=== PATIENT | female | born 1945 | race Caucasian/White ===

== ENCOUNTER 2021-11-08 06:34 | Outpatient (CLI) | payer MEDICARE, SELFPAY ==
--- NOTE | 2021-11-08 18:41 | STRESSREP ---
Stress Test Report Pharmacologic myocardial perfusion stress test. 76-year-old lady with a history of an abnormal echo. Resting EKG demonstrates normal sinus rhythm with a rate of 67 bpm normal intervals are noted resting blood pressure is 126/80 mmHg. 0.4 mg of regadenoson was infused per usual protocol followed by rapid intravenous saline flush injection continuous EKG monitoring was performed. The maximum heart rate attained was 105 bpm which was 73% of max impacted heart rate the maximum workload was 1 metabolic equivalent. At rest there were no ST or T wave changes noted to suggest abnormal flow reserve and at peak infusion nonspecific ST changes were noted with did not meet the criteria for ischemia. The final blood pressure was 144/84 mmHg. Myocardial perfusion protocol. 11.8 mCi of technetium 99m sestamibi was injected at rest. 0.4 mg of regadenoson was infused per usual protocol. At peak infusion 34.6 mCi of technetium 99m sestamibi was injected stress images were obtained stress and rest images were reconstructed and compared in the short axis vertical long and horizontal long axis. Gated images were also obtained Perfusion SPECT analysis: Review of the stress images demonstrate normal uptake of tracer noted in all areas of the myocardium. The resting images similar demonstrate normal uptake of tracer noted in all areas of the myocardium. There were no perfusion areas to suggest ischemia and no previous infarct was noted. Gated SPECT analysis: The gated ejection fraction is 46%. Conclusion: Normal pharmacologic myocardial perfusion stress test. Preserved ejection fraction.
== END 2021-11-08 23:59 | disposition home or self-care (01) ==
PROVIDERS: Referring Provider Internal Medicine Cardiovascular Disease; Visit Provider Internal Medicine Cardiovascular Disease
DX: R93.1 Abnormal findings on diagnostic imaging of heart and coronary circulation (principal); R06.09 Other forms of dyspnea
CPT/HCPCS: 78452; 93017; A9500; A4216; J2785

== ENCOUNTER → 2022-01-24 | Outpatient (CLI) | payer MEDICARE, SELFPAY | END | disposition home or self-care (01) | LOC: PSN 08:32 | PROVIDERS: Referring Provider Internal Medicine Cardiovascular Disease; Visit Provider Internal Medicine Cardiovascular Disease | DX: R00.2 Palpitations (principal); R93.1 Abnormal findings on diagnostic imaging of heart and coronary circulation; I10 Essential (primary) hypertension | CPT/HCPCS: 93225; 93226 ==

== ENCOUNTER 2023-06-26 06:05 | Emergency (ER) | payer MEDICARE, SELFPAY ==
[2023-06-26 06:05] VITALS: BP 144/67; PULSE 83; RESP 19; TEMP 36.5; O2SAT 98; BMI 25.0
--- NOTE | 2023-06-26 06:10 | RAD_ITS ---
INDICATION: fall, pain EXAMINATION/TECHNIQUE: X-RAY - XR Hips Bilateral with Pelvis COMPARISON: None. FINDINGS: A frontal view of the pelvis was obtained as well as frontal and lateral views of the bilateral hips. There is a fracture of the superior pubic ramus on the right. No acute hip fracture is identified bilaterally. No dislocation. Severe degenerative changes of the right hip are characterized by marked subchondral sclerosis and joint space narrowing. Deformity of the right humeral head characterized by flattening and some degree of foreshortening. Extensive osteophytic spurring about the right hip. RAD/Hips B/L min 2 views w/ Pelvis IMPRESSION: Fracture of the right superior pubic ramus. Severe degenerative changes of the right hip. Electronically Signed: Thai Be MD at 7:33 EST ,
--- NOTE | 2023-06-26 06:11 | ED.VIS.FALL ---
HPI HPI - Fall History of Present Illness Chief Complaint: Fall Informant: patient and EMS Narrative Narrative: [facility] patient brought by EMS about 3 hours after she had an unwitnessed fall after rolling out of bed. EMS states that literally she is lying on a mattress that is sitting on the floor so she rolled out of bed falling less than 6 inches to the floor. She seems to have indicated to EMS that her left hip and thigh are hurting. For us, she states she cannot tell where but she has pain. They state that after discussing with staff at the snf she is at her baseline mental status/confusion. [facility] Medical History Allergic rhinitis Arthritis Essential hypertension Hyperglycemia Hyperlipidemia Osteoporosis Home Medications calcium carbonate 250 mg-vitamin D3 3.125 mcg (125 unit) tablet 1 tab PO TID 10/13/21 [History Last Taken Unknown] denosumab 60 mg/mL subcutaneous syringe (Prolia) 60 mg subcut [id number] 10/13/21 [History Last Taken 06/21/23] lovastatin 20 mg tablet 20 mg PO DAILY 10/13/21 [History Last Taken Unknown] multivitamin 1 tab PO DAILY 10/13/21 [History Last Taken Unknown] doxepin 3 mg tablet 3 mg PO QHS sleep 06/26/23 [History Last Taken Unknown] furosemide 20 mg tablet 20 mg PO DAILY 06/26/23 [History Last Taken Unknown] hydrocodone-acetaminophen 5-325mg 5mg-325mg 1 tab PO Q4H PRN PRN Pain 3 days #18 TABLETS 06/26/23 [Rx Last Taken Unknown] potassium chloride 20 mEq tablet,extended release(part/cryst) 20 meq PO DAILY 06/26/23 [History Last Taken Unknown] Allergy/AdvReac Type Severity Reaction Status Date / Time guaifenesin [From Entex LA] Allergy Unknown unknown Verified 06/26/23 06:06 phenylephrine [From Entex LA] Allergy Unknown unknown Verified 06/26/23 06:06 phenylpropanolamine Allergy Unknown unknown Verified 06/26/23 06:06 [From Entex LA] Sulfa (Sulfonamide Allergy Unknown unknown Verified 06/26/23 06:06 Antibiotics) Family History Father Alzheimer's disease Diabetes Hypertension Mother CVA (cerebral vascular accident) Hypertension Surgical History H/O hemorrhoidectomy History of cholecystectomy History of hysterectomy Social History Smoking Status: Never smoker alcohol intake: never substance use type: does not use caffeine: Yes Type: coffee Number of servings: 3 ROS ROS ED Constitutional Constitutional ED: Denies chills or fever(s) Eyes Eyes: Denies change in vision or diplopia ENT ENT ED: Denies rhinorrhea or sore throat Cardiovascular Cardiovascular: Denies chest pain or palpitations Respiratory/Chest Respiratory/Chest: Denies cough or dyspnea Gastrointestinal Gastrointestinal: Denies abdominal pain, diarrhea, nausea or vomiting Genitourinary Genitourinary ED: Denies dysuria or hematuria Musculoskeletal Musculoskeletal: Reports extremity pain; Denies back pain or neck pain Integumentary Denies abscess or rash Neurologic Neurologic: Reports as per HPI and confusion; Denies headache(s), paresthesias or weakness Psychiatric Psychiatric: Reports anxiety; Denies suicidal thoughts EXAM Physical Exam Const Vital Signs: 06/26/23 06:05 06/26/23 06:05 06/26/23 07:49 Temperature 97.7 F L Temperature Source Temporal Pulse Rate 83 66 Respiratory Rate 19 H 18 Respiratory Effort Normal Non-Labored Respiratory Depth Normal Respiratory Pattern Normal Blood Pressure 144/67 H 150/60 H Blood Pressure Mean 92 90 Pulse Ox 98 98 96 Oxygen Delivery Method Room Air Room Air Room Air Positive well nourished and well developed General Appearance ED: well developed and NAD HEENT Reports TM's clear and moist mucous membranes normocephalic and atraumatic; Negative for contusion, hematoma or tenderness Tympanic Membrane ED: Yes TM's clear Eyes PERRL and EOMs intact bilaterally Neck full ROM and supple Chest Wall inspection of chest normal and palpation of chest normal Resp normal respiratory effort and clear to auscultation bilaterally Cardio regular rate, regular rhythm and no murmurs Rate: Negative for tachycardic GI non-tender and non-distended GI Narrative: Pelvis stable to AP compression Auscultation: normoactive bowel sounds Palpation: soft Back/Spine no CVA tenderness General Back: other FROM Extremity normal to inspection Extremity Narrative: Tenderness at both hips at the greater trochanter. She is lying comfortably on the right lateral decubitus, but ranging the left knee and hip do not reproduce pain. However when ranging the right hip, she has pain there. There is no obvious signs of trauma, no ecchymosis or purpura to the areas. She has diffuse tenderness throughout the posterior aspect of the sacrum and pelvis including the ischial tuberosities bilaterally. No midline spinal tenderness or step-off or signs of trauma. General Extremety ED: Yes tenderness; Negative for edema or pulses abnormal General Extremity: Negative for edema or pulses abnormal Neuro CN's II-XII intact bilaterally and no sensory deficits noted Sensorium / Orientation: awake, alert, oriented to person and oriented to place; Negative for oriented to time Motor Exam: strength 5/5 throughout Psych Mood & Affect: anxious Skin no rashes or lesions noted and no wounds MDM MDM MDM Narrative Medical decision making narrative: 5 view x-ray series of pelvis and both hips were obtained and on my interpretation shows an acute right superior ramus fracture and no other fractures. She does appear to have severe arthritis that may also include osteonecrosis and collapse of the right femoral head. This looks chronic. This would explain why she is having pain with ranging the right hip. According to patient and daughter, she does some limited ambulation with significant assistance and they are aware of her bilateral hip arthritis. We did attempt to have her bear weight, and she was not able to put any weight on her legs, citing both hips in her left thigh. She was not tender in her thigh or her knee, but I sent her back for x-rays of the femur all the way down to the knee to rule out further fractures of these areas. 4 views of my interpretation showed no acute fractures throughout the femur or the knee. Given this, I think she can go back to the [facility]. She is already under the care of physical therapy there, this is a weightbearing as tolerated injury, and they can continue to evaluate and work with her. Will send her back with prescription for analgesics if needed. Radiography Diagnostic Testing: Clinical Impression(s) from Imaging Studies Hip/Pelvis X-Ray 06/26/23 06:10 IMPRESSION: Fracture of the right superior pubic ramus. Severe degenerative changes of the right hip. Electronically Signed: Thai Be MD at 7:33 EST , Discharge Plan Triage Chief Complaint: Fall ED Provider: Parth Hernández Dx/Rx/DC Orders Clinical Impression: Accidental fall from bed, Closed fracture of right superior pubic ramus Instructions: ED Pelvic Fracture Prescriptions: New hydrocodone-acetaminophen [hydrocodone-acetaminophen] 5-325 mg tablet 1 tab PO Q4H PRN PRN (Reason: Pain) 3 Days Qty: 18 0RF No Action Prolia 60 mg/mL syringe 60 mg subcut [id number] calcium carbonate-vitamin D3 250 mg-3.125 mcg (125 unit) tablet 1 tab PO TID lovastatin 20 mg tablet 20 mg PO DAILY multivitamin Tablet 1 tab PO DAILY doxepin 3 mg tablet 3 mg PO QHS furosemide 20 mg tablet 20 mg PO DAILY Patient Comments: TAKE ONE TABLET BY MOUTH EVERY DAY potassium chloride 20 mEq tablet,ER particles/crystals 20 meq PO DAILY Patient Comments: TAKE ONE TABLET BY MOUTH EVERY DAY WITH FOOD Primary Care Provider: Delmer Hoffman Referrals: Cielo Zaidi DO [Non-Staff] - Delmer Hoffman MD [Primary Care Provider] - As soon as possible Activity Restrictions/Additional Instructions: There is a minor fracture of the right superior pubic ramus, which is typically nonsurgical, weightbearing as tolerated fracture. This is on the side where her hip arthritis is much worse, which is good. Physical therapy can evaluate her and work with her on this. Treatment is pain control and time for the most part as the bones will take some time to heal. No other areas of fracture seen. Disposition Disposition: Home, Self Care
[2023-06-26] MEDS: HYDROcodone Bitartrate/Apap 5/325 Tablet PO (06:17)
--- OUTSIDE RECORDS SUMMARY | 2023-06-26 06:36 | XMS RPT_ITS | CCD ---
Author Name Unknown Address [address] [place] [address] Organization [facility] Care Team Providers Care Senior Speech Pathologist Name Role Phone DIYA STEELE, DR MCELROY Primary Care Physician [phone] DIYA STEELE, DR MCELROY Attending Unavailable DIYA STEELE, DR MCELROY Primary Care Unavailable KIMBALLTOMMY GONZALEZ, FABY Solorzano Attending Samantha KEANE DO, DR MCELROY Primary Care Unavailable DIYA STEELE, DR MCELROY Primary Care Unavailable MAU GALLOWAY FACP, RYAN Gale Consulting Unavail able ELE ALMANZAR-NATALIA, VIJAYA Chun Admitting Unavaila zacarias GONZALEZ, VIJAYA M Referring Unavaila zacarias SAUNDERS MD FACP, RYAN Gale Attending Unavail able DIYA STEELE, DR MCELROY Attending Unavailable DIYA STEELE, DR MCELROY Primary Care Unavailable Allergies Allergy Classification Reported Allergen(s) Allergy Type Date of Onset Reaction(s) Facility (4 sources) guaiFENesin / Phenylephrine / Phenylpropanolamin e; Translations: [guaifenesin/pheny lephrine/PPA] Drug Allergy [facility] (4 sources) Sulfonamides (Antibiotic); Translations: [sulfa drugs] Drug allergy [facility] (3 sources) misc non-codified allergy 1 Drug allergy Antex [facility] Medications Current Medications Medication Drug Class(es) Dates Sig (Normalized) Sig (Original) amLODIPine 5 mg oral tablet (3 sources) Dihydropyridine Calcium Channel Redd Start: 03-02-2022 amLODIPine 5 mg oral tablet Dose : 5 mg = 1 tab(s), Oral, qDay, # 90 tab(s), 1 Refill(s), Pharmacy: [facility], 155, cm, 12/29/21 9:40:00 EDT, Height, kg, 12/29/21 9:40:00 EDT, Dosing Weight Start Date: 03/02/22 Status: Ordered Completed/Discontinued Medications Medication Drug Class(es) Dates Sig (Normalized) Sig (Original) 1 ml denosumab 60 mg/ml prefilled syringe (3 sources) RANK Ligand Inhibitor Start: 03-22-2023 Prolia 60 mg/mL subcutaneous solution Dose : 60 mg = 1 mL, Subcutaneous, q6mo, # 1 mL, 0 Refill(s), Pharmacy: [facility], 148, cm, 02/22/23 9:51:00 EDT, Height, kg, 02/22/23 9:51:00 EDT, Dosing Weight Start Date: 03/22/23 Status: Ordered Problems Problem Classification Problem Date Documented Date Episodic/Chronic Conduction disorders (2 sources) Second degree atrioventricular block; Translations: [Atrioventricular block, second degree] Onset: 06-21-2023 Chronic Diabetes mellitus without complication (4 sources) Hyperglycemia 02-23-2020 Episodic Disorders of lipid metabolism (4 sources) Hyperlipidemia 05-27-2019 Chronic Results Test Name Value Interpretation Reference Range Facil ity Vital Signs Date Time Vital Sign Value Performing Clinician Vlad harding 06-21-2023 12:18-0500 Body temperature 98.06 [degF] VIJAYA MARLOW [employer] [facility] 06-21-2023 12:18-0500 Diastolic Blood Pressure Non-Invasive 78 mm[Hg] VIJAYA MARLOW APRN-[employer] DRIVER [facility] 06-21-2023 12:18-0500 Heart rate 69 /min VIJAYA GONZALEZ [facility] 06-21-2023 12:18-0500 Reason For Taking VItal Signs VIJAYA AGARWALSALES ROUTE DRIVER [facility] 06-21-2023 12:18-0500 Respiratory rate 18 /min VIJAYA KAPPER FLOWER [employer]ENILLER-[employer] DRIVER [facility] 06-21-2023 12:18-0500 Systolic Blood Pressure Non-Invasive 145 mm[Hg] VIJAYA GUERRAER FLOWER [employer] [facility] 06-21-2023 06:53-0500 Body temperature 98.06 [degF] VIJAYA GUERRAER FLOWER [employer] [facility] 06-21-2023 06:53-0500 Diastolic Blood Pressure Non-Invasive 93 mm[Hg] VIJAYA GUERRAER FLOWER [employer] DR[employer] [facility] 06-21-2023 06:53-0500 Heart rate 75 /min VIJAYA MARLOW FLOWER [employer] [facility] 06-21-2023 06:53-0500 Reason For Taking VItal Signs VIJAYA MARLOW FLOWER [employer] DR[employer] [facility] 06-21-2023 06:53-0500 Respiratory rate 18 /min VIJAYA GUERRAER FLOWER [employer] [facility] 06-21-2023 06:53-0500 Systolic Blood Pressure Non-Invasive 113 mm[Hg] VIJAYA GUERRAER FLOWER [employer] [facility] 06-21-2023 04:00-0500 Body temperature 97.88 [degF] VIJAYA GUERRAER FLOWER [employer] [facility] 06-21-2023 04:00-0500 Diastolic Blood Pressure Non-Invasive 66 mm[Hg] VIJAYA MARIER FLOWER [employer] [facility] 06-21-2023 04:00-0500 Heart rate 74 /min VIJAYA GUERRAER FLOWER [employer] [facility] 06-21-2023 04:00-0500 Systolic Blood Pressure Non-Invasive 151 mm[Hg] VIJAYA KAPPER FLOWER [employer] [facility] 06-21-2023 03:20-0500 Body weight 56.7 kg VIJAYA KAPPER FLOWER [employer] [facility] 06-20-2023 23:45-0500 Mean blood pressure 77 mm[Hg] VIJAYA KAPPER FLOWER [employer] [facility] 06-20-2023 03:30-0500 Heart rate 78 /min VIJAYA KAPPER FLOWER [employer] [facility] 06-20-2023 00:00-0500 Heart rate 80 /min VIJAYA KAPPER FLOWER [employer] [facility] 06-19-2023 20:20-0500 Heart rate 98 /min VIJAYA KAPPER FLOWER [employer] [facility] 06-19-2023 15:55-0500 Body height 152.4 cm VIJAYA KAPPER FLOWER [employer] [facility] 06-19-2023 15:55-0500 Body weight 56.6 kg VIJAYA KAPPER FLOWER [employer] [facility] 06-19-2023 15:55-0500 Body weight 24.37 kg/m2 VIJAYA KAPPER FLOWER [employer] [facility] 06-19-2023 15:39-0500 Heart rate 93 /min VIJAYA KAPPER FLOWER [employer] [facility] 06-19-2023 10:39-0500 Heart rate 75 /min VIJAYA KAPPER FLOWER [employer] DR[employer] [facility] Encounters Encounter Date Encounter Type Care Provider Facility Start: 06-19-2023 End: 06-21-[address] LILIBETH KEANE DO Facility:[facility] Start: 06-19-2023 End: 06-21-2023 Observation VIJAYA MARLOW FLOWER [employer] [facility] Start: 01-01-2023 End: 01-02-[address] LILIBETH KEANE DO Facility:B Start: 06-26-2022 End: 06-27-[address] LILIBETH KEANE DO Facility:[facility] Start: 06-26-2022 End: 06-26-[address] LILIBEHT KEANE DO [facility] Start: 01-02-2022 End: 01-02-[address] LILIBETH KEANE DO [facility] Start: 06-14-2021 End: 06-14-[address] LILIBETH KEANE DO [facility] Procedures Date Procedure Procedure Detail Performing Clinician Start: 01-21-[address] LILIBETH KEANE DO Immunizations Immunization Date Immunization Notes Care Provider [facility] 01-28-2023 influenza, high dose seasonal, preservative-free; Translations: [Fluad Quadrivalent PF ] VIJAYA MARLOW FLOWER [employer] DRIVER [facility] 01-19-2022 influenza, high dose seasonal, preservative-free DR LILIBETH KEANE DO [facility] 03-06-2021 SARS-CoV-2 mRNA (tozinameran) vaccine DR LILIBETH KEANE DO [facility] 01-25-2021 influenza, high dose seasonal, preservative-free; Translations: [Fluad Quadrivalent PF ] DR LILIBETH KEANE DO [facility] 08-28-2020 SARS-CoV-2 (COVID-19 ) mRNA-[id number] LILIBETH KEANE DO [facility] Payers Date Payer Category Payer Private Health Insurance [id number] 2022 Private Health Insurance [id number] 1945 Unknown [id number] 1945 Unknown [id number] 1945 Unknown [id number] 1945 Unknown [id number] Social History Date Type Detail Facility Start: 11-18-2018 End: 06-19-2023 Never smoked tobacco (finding) [facility] Sex Assigned At Female [facility] Functional Status Date Assessment Result Facility 06-21-2023 Functional Status Other: 7AM-130PM [facility] 06-21-2023 Functional Status Identified as high risk, Fall ID band on, Bed alert on, Door open, Non-Slip footwear, Room check performed [facility] 06-21-2023 Functional Status [facility] 06-20-2023 Functional Status [facility] 06-20-2023 Functional Status [facility] 06-20-2023 Functional Status Remains up in chair [facility] 06-20-2023 Functional Status Isaura Ojeda [facility] 06-20-2023 Functional Status Mod A Isaura [facility] 06-20-2023 Functional Status Apartment, 2nd floor bedroom, 2nd floor bathroom, Other: 2nd floor laundry [facility] 06-20-2023 Functional Status Isaura Ojeda [facility] 06-20-2023 Functional Status Isaura Ojeda [facility] 06-19-2023 Functional Status Isaura Ojeda [facility] 06-19-2023 Functional Status Refused to ambulate [facility] 06-19-2023 Functional Status Isaura [facility] 06-19-2023 Functional Status Isaura [facility] Mental Status Date Assessment Result Facility 06-21-2023 Mental Status Not oriented to time, Forgetful, Follows simple commands [facility] 06-20-2023 Mental Status [facility] Clinical Notes 06-19-2023 to 06-21-2023 Note Date & Type Note Facility 06-21-2023 Note Discharge Instructions Thank you for allowing [facility] to assist you with your healthcare needs. The following is important discharge information regarding your hospital visit. Your Care Team [facility] Your Diagnosis Allergic rhinitis Confusion Fall at home HTN (hypertension) Mobitz type 1 second degree AV block Osteoarthritis Right leg pain Weakness What to do next Follow Up Appointments Follow Up with LILIBETH KEANE DO When Within 2-4 days Where: [address] [place] [phone] The Following Activity and Diet Have Been Ordered for You Transfer of Care Activity - Ordered -- As instructed by therapy, 06/21/23 10:00:00 EST Transfer of Care Diet - Ordered -- Type of Diet: Regular Diet, 06/21/23 10:00:00 EST The Following Treatments Have Been Ordered for You Discharge Labs No qualifying data available. Discharge Radiology No qualifying data available. Other Therapies Discharge Event Monitor Instructions - Ordered -- 06/21/23 10:53:06 EST, You have been ordered mobile outpatient telemetry. You should receive a device in the mail with further instructions. If you have not received a device within 7 days after discharge, please call [facility] at [phone]. Transfer of Care OT - Ordered -- Reason for therapy: weakness, 06/21/23 10:00:00 EST Transfer of Care PT - Ordered -- Reason for therapy: Weakness, 06/21/23 10:00:00 EST Post Acute Orders Transfer of Care Admission Level of Care - Ordered -- Level of Care SNF, 06/21/23 10:00:47 EST Transfer of Care Code Status - Ordered -- Full Code, Constant Order Transfer of Care Orders Electronically Signed By - Ordered -- 06/21/23 10:00:00 EST, JANESSA FALK APRN-SALES ROUTE DRIVER Transfer of Care Oxygen Therapy - Ordered -- Oxygen (CONTINUOUS), Mobile in the Home, Nasal Cannula, 2 liters per minute, 999 month(s), 06/21/23 10:00:00 EST Transfer of Care Prognosis - Ordered -- Fair, Patient Aware: Yes Transfer of Care Rehab Potential - Ordered -- Rehab potential fair, 06/21/23 10:00:47 EST Allergies Entex sulfa drugs Medications Please ask your primary doctor or pharmacist before taking any other medication not listed, including over the counter drugs, herbal medications, vitamins and or supplements as they may interact with your home medications. What How Much When Why Instructions Last Dose Unchanged calcium-vitamin D (calcium (as carbonate)-vitamin D 250 mg-125 intl units oral tablet) 1 tab(s) by mouth Three (3) times a day Unchanged clotrimazole topical (clotrimazole 1% topical cream) 1 application Topical Two (2) times a day Unchanged denosumab (Prolia 60 mg/ mL subcutaneous solution) 1 Milliliter Subcutaneous Every 6 months Unchanged diclofenac topical (Voltaren 1% topical gel) 2 gram(s) Topical Four (4) times a day as needed for as needed for pain Left shoulder pain Duration: 30 Days Unchanged DME (DME MISCellaneous) See instructions Pressure ulcer of right buttock, stage 2 Pressure ulcer of left buttock, stage 2 Dynaderm topically once weekly to stage 2 pressure ulcers to bilateral buttocks. Unchanged DME (DME MISCellaneous) See instructions Pressure ulcer of right buttock, stage 2 Pressure ulcer of left buttock, stage 2 Duoderm CGF Sterile Dressing topically to Stage 2 pressure ulcer on left buttocks once weekly and prn. Unchanged famotidine (famotidine 10 mg oral tablet) 1 tab(s) by mouth Two (2) times a day as needed for Indigestion Unchanged fluticasone nasal (fluticasone proprionate NASAL 50 mcg/ spray) 2 spray(s) each nostril Once a day (in the morning) Allergic rhinitis Duration: 90 Days Unchanged furosemide (Lasix 20 mg oral tablet) 1 tab(s) by mouth Once a day Unchanged lovastatin (lovastatin 20 mg oral tablet) 1 tab(s) by mouth Once a day Duration: 90 Days Unchanged multivitamin (Multivitamin) 1 tab(s) by mouth Every day Unchanged mupirocin topical (mupirocin 2% topical ointment) 1 application Topical Two (2) times a day Unchanged potassium chloride (Potassium Chloride (Eqv-K-Tab) 20 mEq oral tablet, extended release) 1 tab(s) by mouth Once a day Take with food Please take this list to your next doctor s visit. Bring all medications you take, including over the counter medications, herbals and other supplements with you to your doctor s visit. Patients and families are reminded to discard old lists and to update any records with all medication providers or retail pharmacies. Education Materials Fall with Uncertain Cause You have had a fall today. But the cause of your fall is not certain. Falls can happen due to slipping, tripping or losing your balance. A fall can also happen from a fainting spell or seizure. While a fall can happen for a simple reason (tripping over something), falls in elderly people are often caused by a combination of things: Age-related decline in function with worsening balance, stability, vision, and muscle strength Chronic illness, such as heart arrhythmias, heart valve disease, vascular disease, COPD, diabetes, strokes, or arthritis Shoes that do not give much support and make you prone to slip or slide Anemia or low blood pressure Effects or side effects of medicines Dehydration or recent use of alcohol Environmental hazards, such as uneven or slippery ground, unfamiliar place, obstacles, uneven surfaces, or slippery ground Situational factors (related to the activity being done, such as rushing to the bathroom) Because the cause of your fall today is not certain, it is possible that a fainting spell or seizure was the cause. This means that it could happen again, without warning. If you fall again, without a cause, then you should return to this facility promptly to have further tests. Otherwise, follow up with your healthcare provider as explained below. It is normal to feel sore and tight in your muscles and back the next day, and not just the muscles you initially injured. Remember, all the parts of your body are connected, so while initially one area hurts, the next day another may hurt. Also, when you injure yourself, it causes inflammation, which then causes the muscles to tighten up and hurt more. After the initial worsening, it should gradually improve over the next few days. However, more severe pain should be reported. Even without a definite head injury, you can still get a concussion. Concussions and even bleeding can still happen, especially if you have had a recent injury or take blood thinner medicine. It is not unusual to have a mild headache and feel tired and even nauseous or dizzy. Home care Rest today and resume your normal activities as soon as you are feeling back to normal. It is best to remain with someone who can check on you for the next 24 hours to watch for another episode of falling. If you were injured during the fall, follow the advice from your healthcare provider regarding care of your injury. If you become lightheaded or dizzy, lie down right away or sit and lean forward with your head down. As a precaution, don't drive a car or operate dangerous equipment, don't take a bath alone (use a shower instead), and don't swim alone until you see your healthcare provider. A condition causing fainting or seizures must be ruled out before resuming these activities. You may use acetaminophen or ibuprofen to control pain, unless another pain medicine was prescribed. If you have chronic liver or kidney disease or ever had a stomach ulcer or gastrointestinal bleeding, talk with your healthcare provider before using these medicines. Keep your appointments for any further testing that may have been scheduled for you. Follow-up care Follow up with your healthcare provider, or as advised. If X-rays or CT scan were done, you will be notified if there is a change in the reading, especially if it affects treatment. Call 911 Call 911 if any of these happen: Trouble breathing Confused or difficulty arousing Fainting or loss of consciousness Rapid or very slow heart rate Seizure Difficulty with speech or vision, weakness of an arm or leg Difficulty walking or talking, loss of balance, numbness or weakness in one side of your body, facial droop When to seek medical advice Call your healthcare provider right away if any of these happen: Another unexplained fall Dizziness Severe headache Nausea and vomiting Blood in vomit, stools (black or red color) [phone] The [employer]. [address] [place] [id number]. All rights reserved. This information is not intended as a substitute for professional medical care. Always follow your healthcare professional's instructions. Additional Information VACCINATE! IT SAVES LIVES! Members of the community who have not yet received the COVID-19 vaccine and would like to receive it can visit one of [facility] vaccine clinics. There are many vaccine clinic locations within the [facility]. For locations and available times, please visit [email or web address] It is important to note that some COVID mobile vaccine clinics are held outdoors and may be canceled in rainy or stormy conditions. To learn more about pediatric vaccinations (ages 5-11), we invite you to visit the [facility] webpage. [email or web address]/[email or web address]-[email or web address]-Frequently-[email or web address] -Questions.html To learn more about the COVID-19 vaccine, we invite you to visit the CDC website for a list of frequently asked questions.https://www.cdc.gov/coronavi roseanne/2019-ncov/vaccines/faq.html [facility] Patient Portal Access Instructions: Stay connected with your healthcare team and access your personal medical information anytime with the [facility] Patient Portal. Please follow the directions below to create your [facility] account: 1.Access the email account you provided upon registration to the hospital/physician office.2.Look for an invitation email from [facility].3.Open the email and access the invitation link: Accept Invitation to [facility].4.Fill in the required isaac to create your account. To access your account, visit [email or web address]. Click the blue button labeled Access Patient Portal and then log in with the username and password that you created in the steps above. You will be able to view your test results, lab results, a summary of your visits, upcoming appointments and more. There is also a convenient messaging option where you can send secure messages to your provider. In addition, you will have the ability to download any documents or summaries to your computer and/or send the information securely to a physician. Remember that your healthcare information is confidential, so carefully consider who you will allow to register on the [facility] Patient Portal for access to your information. You can also access the [facility] Patient Portal on the [employer] enrrique. Simply click on Patient Portal and then log into your account. If you would like to receive a full copy of your medical records, please contact the [facility] Medical Records Department by calling [phone], Saturday through Saturday between 8 a.m. and 4:30 p.m. HOW TO SAFELY DISPOSE OF PRESCRIPTION MEDICATIONS Please use one of the following methods to safely dispose of your unused medications. 1.Use a drug disposal kit: the drug disposal pouch allows you to safely discard your old and unused drugs. Ask your nurse to give you one when you are discharged.2.Visit a local take-back location: Many local pharmacies and police departments have programs that collect old and unwanted prescription drugs. Call your local pharmacy or go to http://EcoNova.Pulmatrix/3C3Cx7z to find one close to you.3.Make use of household items: Use cat litter or old coffee grounds to dispose medications if other options are not available. Mix your drugs with these household products, seal them in an airtight container and throw it into the garbage. Call [facility]: [phone] to be sure your drugs can be disposed of in this way. Some medicines may require a different approach.4.Never flush your medications down the toilet. IF YOU HAVE BEEN PRESCRIBED AN OPIOID FOR PAIN If you have been prescribed an opioid (such as hydrocodone, oxycodone or morphine), it is critical to understand the possible side effects and risks of opioid pain medications. Even when taken as directed, opioids can have several side effects including: Tolerance, meaning you might need to take more of a medication for the same pain relief. Nausea, vomiting and/or constipation. Sleepiness, dizziness, dry mouth, confusion, depression or itching. Physical dependence, meaning you have withdrawal symptoms when a medication is stopped, can develop within a few days. KNOW YOUR RESPONSIBILITIES It is important to know exactly how much and how often to take the opioid pain medications you are prescribed. Never take opioids in higher amounts or more often than prescribed. Do not combine opioids with alcohol or other drugs that cause drowsiness, such as benzodiazepines, also known as benzos, including diazepam and alprazolam, muscle relaxants or sleep aids. Never sell or share prescription opioids. This is illegal. Store opioids in a secure place and out of reach of others (including children, family, friends and visitors). The last page of this document has been signed and retained as a CHART COPY. Signatures Patient Education Materials Fall, Uncertain Cause Medication Leaflets My discharge plan and instructions have been reviewed and explained to me and I,MALIK OLIVERA understand my current condition and have read and understand these discharge instructions. I have received a written copy of the plan/instructions. If I have questions, I am aware that I should contact my doctor. Patient/Fish Liver Sorter Signature: _ Date/Time: Relationship to Patient: Witness Name/Signature: Date/Time: [facility] 06-21-2023 Note Sinus rhythm Prolonged MO interval Electronic Signature: JADA MCGREGOR MD 06/21/2023 10:24:45 [facility] 06-20-2023 Note Date of Service 06/20/2023 Chief Complaint Weakness and fall Subjective 77-year-old female with past medical history significant for HTN, HLD, GERD. Patient presented to [facility] emergency department on 06/19/2023 via EMS after sustaining a fall landing on her buttocks. She endorsed right hip and buttock pain. In the emergency department she was afebrile and hemodynamically stable with adequate oxygenation on room air. CBC unremarkable, potassium level 3.4, BNP 70, troponin 8.4. Specific gravity on urinalysis was greater than 1.030. CT head showed age indeterminant left thalamus lacunar infarct. CT of the right hip shows possible trace fluid in the right iliopsoas bursa. Soft tissue contusion of the left posterior buttock. Severe deformity of the right hip joint x-ray chest, CT cervical spine, x-ray of right hip, CT lumbar spine showed no acute abnormality. Patient was evaluated by PT and OT with recommendations for SNF. Patient does seem to have confusion. It is unclear what her baseline is as her son is not a great historian. Patient's only complaints today are of buttock pain. Objective Vitals and Measurements T: 36.5 C (Oral) TMIN: 36.3 C (Oral) TMAX: 36.8 C (Oral) HR: 75(Monitored) RR: 20 BP: 150/57 SpO2: 97% HT: 152.4 cm WT: 57.4 kg BMI: 24.37 Intake and Output 7AM Yesterday to 7AM Today Intake and Output (Last 24 hours) Intake Oral Intake 320.00 Output Urinary Catheter Output: 875.00 Stool Count 0.00 Urine Count 2.00 Emesis Count 0.00 Total Summary Total Intake 320.00 Total Output 875.00 Fluid Balance -555.00 Physical Exam GEN: Appears chronically ill CHEST: Normal S1 and S2. Rhythm is regular. Clear to auscultation, without rales, rhonchi, wheezing. ABD: Positive bowel sounds x 4 quads. Soft, nondistended, nontender. EXT: No significant deformity or joint abnormality. No edema. Peripheral pulses intact. NEURO: Sensation grossly intact SKIN: Skin color normal PSYCH: The mental examination revealed the patient was alert and oriented x 4 Weight Current Weight Dosing Weight: 56.6 kg (06/19/23) Current Weight: 57.4 kg (06/20/23) Medications Medications (19) Active Scheduled: (8) atorvastatin 10 mg tablet 10 mg 1 tab(s), Oral, qDay calcium-vitamin D 500 mg-200 units tablet 1 tab(s), Oral, TID fluticasone nasal 0.05 mg/inh [place] 100 mcg 2 spray(s), Nostril, each, qAM furosemide 20 mg tablet 20 mg 1 tab(s), Oral, qDay Misc communication order guaifenesin, Miscellaneous, qDay multivitamin (Myadec) with minerals Therapeutic Multiple Vitamins with Minerals Tablet 1 tab(s), Oral, qDayM pantoprazole 20 mg EC tablet 40 mg 2 tab(s), Oral, qDayAC potassium chloride 20 mEq ER tablet 20 mEq 1 tab(s), Oral, qDay Continuous: (0) PRN: (11) acetaminophen 325 mg Tablet 650 mg 2 tab(s), Oral, q4h acetaminophen 325 mg Tablet 650 mg 2 tab(s), Oral, q4h acetaminophen-HYDROcodone 325-5 mg tablet 1 tab(s), Oral, q4h benzonatate 100 mg Capsule 100 mg 1 cap(s), Oral, TID calcium carbonate 500 mg Chewable 500 mg 1 tab(s), Chewed, TID famotidine 20 mg tablet 10 mg 0.5 tab(s), Oral, BID hydralazine 20 mg/mL (1mL) vial 10 mg 0.5 mL, IV Push, q4h hydromorphone 1 mg/mL (1mL) INJ 0.5 mg 0.5 mL, IV Push, q4h LORAZEPam 2 mg/mL 1 mL vial 0.5 mg 0.25 mL, IV Push, q6h melatonin 3 mg tablet 6 mg 2 tab(s), Oral, qHS ondansetron 2 mg/ 1 mL 2 mL INJ 4 mg 2 mL, IV Push, q4h Lab Results 06:11 WBC: 6.4 Hgb: 11.7 L Hct: 34.0 L Platelet: 174 Neutrophil %: 84.4 H Glucose Level: 117 H Sodium Level: 146 H Potassium Level: 3.5 BUN: 15 Creatinine Lvl (s): 0.73 06/19 05:49 WBC: 9.0 Hgb: 13.9 Hct: 40.1 Platelet: 212 Neutrophil %: 88.2 H Glucose Level: 134 H Sodium Level: 145 Potassium Level: 3.4 L BUN: 17 Creatinine Lvl (s): 0.87 EKG Electrocardiogram [AOH] (EKG [AOH]) - InProcess -- 06/20/23 10:49:00 EST Electrocardiogram [AOH] (EKG [AOH]) - InProcess -- 06/20/23 11:47:00 EST Electrocardiogram [AOH] (EKG [AOH]) - InProcess -- 06/20/23 12:07:00 EST Electrocardiogram [AOH] (EKG [AOH]) - InProcess -- 06/20/23 13:14:00 EST Assessment/Plan 1. Weakness 2. Fall at home 3. Osteoarthritis 4. HTN (hypertension) Weakness continue PT and OT. Patient has been accepted at [facility] and insurance has approved. Fall-secondary to weakness and osteoarthritis with severe degenerative changes. Continue with PT and OT. Continue as needed [place] for pain. HTN- SBP goal 140 or less. Continue home antihypertensives. Concern for afib- EKG obtained due to concern for afib. No afib noted. First EKG was poor quality with artifact. Next 2 EKGs were obtained while sitting up in the chair. Bedside nurse put patient back in bed and obtain the EKG. This showed normal sinus rhythm. Troponin negative. Patient denies any chest pain or palpitations. DVT prophylaxis: SCDs Code Status: Full code Plan of care discussed with patient. All questions answered. Patient verbalizes understanding is agreeable to plan of care. This dictation was performed using voice recognition software and may include grammatical and/or spelling errors. Time Spent 40 minutes Digitally Signed by JANESSA FALK on 06/20/2023 03:25 PM [facility] Assessment/Plan 1. Weakness 2. Fall at home 3. Osteoarthritis 4. HTN (hypertension) Weakness continue PT and OT. Patient has been accepted at [facility] and insurance has approved. Fall-secondary to weakness and osteoarthritis with severe degenerative changes. Continue with PT and OT. Continue as needed [place] for pain. HTN- SBP goal 140 or less. Continue home antihypertensives. Concern for afib- EKG obtained due to concern for afib. No afib noted. First EKG was poor quality with artifact. Next 2 EKGs were obtained while sitting up in the chair. Bedside nurse put patient back in bed and obtain the EKG. This showed normal sinus rhythm. Troponin negative. Patient denies any chest pain or palpitations. DVT prophylaxis: SCDs Code Status: Full code Plan of care discussed with patient. All questions answered. Patient verbalizes understanding is agreeable to plan of care. This dictation was performed using voice recognition software and may include grammatical and/or spelling errors. Time Spent 40 minutes Extracted from: Title:History and Physical Author:VIJAYA MARLOW APRN-[employer] Date:06/19/23 1. Right leg pain Acute, new onset secondary to fall at home this morning. CT of the hip and x-ray of right hip demonstrate right hip deformity. Patient seems to indicate the pain is coming from right knee and right thigh. Will x-ray those to rule out fracture. Continue IV and PO pain medication and antiemetics. 2. Weakness Chronic, s/p fall. Consult placed to PT and OT to evaluate and treat. office services associate following for discharge planning. 3. HTN (hypertension) Chronic. Continue current home antihypertensives. SBP goal of 140 or less. 4. Confusion Chronic, unsure of baseline. Monitor for safety. Urinalysis was unremarkable. DVT prophylaxis with SCDs. Code status: Full Code. Labs, diagnostic test and progress notes reviewed as noted in HPI. Plan of care discussed with patient. All questions answered. Patient verbalizes understanding and is agreeable with plan of care. This case was discussed with collaborating physician, Dr. Ryan Saunders. 55 minutes spent reviewing past diagnostic tests, reviewing lab results, vital sign trends, medical history, reviewing medications and ordering home medications, examining patient, discussed plan of care with nursing, social worker aide, collaborating with physician, and documenting in chart. [facility] 02-29-2024 NoteSinus rhythm Prolonged MO interval Borderline T abnormalities, inferior leads Electronic Signature: JADA MCGREGOR MD 06/21/2023 10:16:51[facility] 02-29-2024 NoteSinus rhythm Multiple premature complexes, vent & supraven Prolonged MO interval Consider left atrial enlargement Consider left ventricular hypertrophy Electronic Signature: JADA MCGREGOR MD 06/21/2023 10:15:19[facility] 02-29-2024 NoteSinus rhythm Prolonged MO interval Consider left atrial enlargement Consider left ventricular hypertrophy Borderline T abnormalities, inferior leads Electronic Signature: JADA MCGREGOR MD 06/21/2023 10:16:28[facility] 02-29-2024 NoteSinus rhythm Short MO interval Consider left atrial enlargement Borderline right axis deviation Nonspecific T abnormalities, lateral leads Electronic Signature: JADA MCGREGOR MD 06/21/2023 10:18:10[facility] 02-28-2024 Note Date of Service 06/19/2023 Chief Complaint fall , c/o pain in butt, dr states he feels that her R leg may have some shortening. Patient is poor historian. History of Present Illness Patient is a 77-year-old female, who follows with Dr. Lilibeth Keane with a past medical history significant for hypertension, hyperlipidemia, and GERD, [facility] emergency[facility] with the chief complaint of fall and right leg pain. Patient is a poor historian and provides no information today. Per ED, patient fell at home and her son, who lives with her, called EMS. She fell approximately 45 minutes prior to arriving in the ED last night. She states that she slipped and fell on her buttocks but then stated she was just laying in bed. Her son found her on the floor. She does not believe that she hit her head. She denies any numbness or tingling. She further denies any fever, chills, cough, shortness of breath, chest pain, abdominal pain, nausea or dysuria. In the emergency department, CT of the head revealed no acute intracranial hemorrhage. Soft tissue swelling of the left premaxillary region. Age- indeterminate left thalamic lacunar infarct. CT of thehip revealed No acute fracture or dislocation. Soft tissue contusion of the left posterior buttock. Severe deformity of the right hip joint. Suspect trace fluid in the right iliopsoas bursa which canbe seen with iliopsoas bursitis. CT of the lumbar spine revealed no acute fracture or evidence of traumatic listhesis. Severe spinal canal stenosis at multiple levels. X-ray of the right hip revealedno acute fracture or dislocation. Severe chronic deformity of the right hip joint. Chest x-ray unremarkable. EKG revealed atrial fibrillation. CBC was unremarkable. BMP significant for glucose 134 and potassium 3.4. Troponin and BNP unremarkable. Urinalysis unremarkable. Patient was administered 4 mg zofran IV and 100 mcg fentanyl IV in the ED. The case was discussed with the ED physician who coreen mmended admission for observation. We will continue IV and PO pain medication and antiemetics. Consult placed to PT and OT to evaluate and treat. office services associate following for discharge planning as patient will likely require placement. Repeat CBC and BMP in the am. Patient seen shortly after arrival to medical surgical unit. She was very painful holding her right thigh/knee area. She denied any other concerns. Discussed plan of care with patient and she is agreeable with this plan. All questions answered. She is again very agitated and no useful information was obtained from her. Review of Systems Review of Systems: Reviewed in detail, including general health, HEENT, cardiovascular, respiratory, gastrointestinal, genitourinary, endocrine, musculoskeletal, neurologic, vascular, skin, and psychiatric. All are negative except for those listed in the History of Present Illness. Physical Exam Vitals and Measurements T: 36.5 C (Oral) TMIN: 36.2 C (Oral) TMAX: 36.6 C (Oral) HR: 98(Apical) RR: 21 BP: 160/81 SpO2: 94%HT: 152.4 cm WT: 56.6 kg BMI: 24.37 Weight Dosing Weight: 56.6 kg (06/19/23) General: No acute distress. Patient is alert, chronically ill-appearing, frail. Skin: No rash. Skin is warm, dry and intact. HEENT: Head is normocephalic, atraumatic. Pupils are equal, round and reactive. Neck: Supple. No lymphadenopathy, thyromegaly. Lungs: Bilaterally clear but diminished without crepitation or wheeze. Unlabored. Heart: Heart is regular rhythm, S1, S2. No murmurs, gallops or rubs. Abdomen: Abdomen is soft, nontender. Bowels sounds present in all quadrants. Extremities: No clubbing, cyanosis, or edema. Peripheral pulses palpable. No calf tenderness. Neurological: Patient is awake and alert to person only, restless. Following simple commands, moving all extremities. Lab Results 02/28 05:49 WBC: 9.0 Hgb: 13.9 Hct: 40.1 Platelet: 212 Neutrophil %: 88.2 H Glucose Level: 134 H Sodium Level: 145 Potassium Level: 3.4 L BUN: 17 Creatinine Lvl (s): 0.87 Imaging Results and Diagnostics CT Hip w/o Contrast Right Result Date: June 19, 2023 Verified By: SAMANTA SOTELO MD CLINICAL STATEMENT: IMPRESSION: No acute fracture or dislocation. Soft tissue contusion of the left posterior buttock. Severe deformity of the right hip joint. Suspect trace fluid in the right iliopsoas bursa which can be seen with iliopsoas bursitis. I have personally reviewed the images of this examination and agreewith the resident's findings and interpretation. CT Spine Lumbar w/o Contrast Result Date: June 19, 2023 Verified By: SAMANTA SOTELO MD CLINICAL STATEMENT: IMPRESSION: No acute fracture or evidence of traumatic listhesis. Severe spinal canal stenosis at multiple levels as described above. I have personally reviewed the images of this examination and agree with the resident's findings and interpretation. XR Hip Right w/Pelvis 4 Views Result Date: June 19, 2023 Verified By: SAMANTA SOTELO MD CLINICAL STATEMENT: IMPRESSION: No acute fracture or dislocation. Severe chronic deformity of the right hip joint. Preliminary Report was Dictated by a Resident XR Chest 1 View Result Date: June 19, 2023 Verified By: SAMANTA SOTELO MD CLINICAL STATEMENT: IMPRESSION: No acute radiographic process. Preliminary Report was Dictated by a Resident CT Spine Cervical w/o Contrast Result Date: June 19, 2023 Verified By: SAMANTA SOTELO MD CLINICAL STATEMENT: IMPRESSION: No acute fracture of the cervical spine. I have personally reviewed the images of this examination and agree with the resident's findings and interpretation. CT Head or Brain w/o Contrast Result Date: June 19, 2023 Verified By: SAMANTA SOTELO MD CLINICAL STATEMENT: IMPRESSION: No acute intracranial hemorrhage. Soft tissue swelling of the left premaxillary region.Age-indeterminate left thalamic lacunar infarct. Preliminary Report was Dictated by a Resident EKG EC06/19/23: Atrial fibrillation Borderline right axis deviation Consider left ventricular hypertrophy Artifact in lead(s) I,II,III,aVR,aVL,aVF,V1,V2,V6 Electronic Signature: JESSICA ARECHIGA DO 06/19/2023 06:26:10 Assessment/Plan 1. Right leg pain Acute, new onset secondary to fall at home this morning. CT of the hip and x-ray of right hip demonstrate right hip deformity. Patient seems to indicate the pain is coming from right knee and right thigh. Will x-ray those to rule out fracture. Continue IV and PO pain medication and antiemetics. 2. Weakness Chronic, s/p fall. Consult placed to PT and OT to evaluate and treat. office services associate following fordischarge planning. 3. HTN (hypertension) Chronic. Continue current home antihypertensives. SBP goal of 140 or less. 4. Confusion Chronic, unsure of baseline. Monitor for safety. Urinalysis was unremarkable. DVT prophylaxis with SCDs. Code status: Full Code. Labs, diagnostic test and progress notes reviewed as noted in HPI. Plan of care discussed with patient. All questions answered. Patient verbalizes understanding and is agreeable with plan of care. This case was discussed with collaborating physician, Dr. Ryan Saunders. 55 minutes spent reviewing past diagnostic tests, reviewing lab results, vital sign trends, medicalhistory, reviewing medications and ordering home medications, examining patient, discussed plan of care with nursing, social worker aide, collaborating with physician, and documenting in chart. Problem List/Past Medical History Ongoing Abnormal echocardiogram Allergic rhinitis Arthritis Bedbug bite Breast screening declined HTN (hypertension) Hyperglycemia Hyperlipidemia Need for vaccination Osteoporosis Historical Elevated liver enzymes Procedure/Surgical History Hemorrhoid operation: 01/21/09 Hysterectomy Cholecystectomy Medications Home Medications (13) Active calcium (as carbonate)-vitamin D 250 mg-125 intl units oral tablet 1 tab(s), Oral, TID clotrimazole 1% topical cream 1 enrrique, Topical, BID DME MISCellaneous See Instructions DME MISCellaneous See Instructions famotidine 10 mg oral tablet 10 mg = 1 tab(s), PRN, Oral, BID fluticasone proprionate NASAL 50 mcg/ spray 2 spray(s), Nostril, each, qAM Lasix 20 mg oral tablet 20 mg = 1 tab(s), Oral, qDay lovastatin 20 mg oral tablet 20 mg = 1 tab(s), Oral, qDay Multivitamin 1 tab(s), Oral, Daily mupirocin 2% topical ointment 1 enrrique, Topical, BID Potassium Chloride (Eqv-K-Tab) 20 mEq oral tablet, extended release 20 mEq = 1 tab(s), Oral, qDay Prolia 60 mg/mL subcutaneous solution 60 mg = 1 mL, Subcutaneous, q6mo Voltaren 1% topical gel 2 gram(s), PRN, Topical, QID Allergies Entex sulfa drugs Social History Smoking Status - 08/02/2016 Never smoker Alcohol Use: Never., 11/18/2018 Home/Environment Living situation: Home with assistance. Financial concerns: No. Domestic Concerns: Denies. 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 Lives In: Apartment, 1st floor bedroom, 1st floor bathroom, about 15 steps to enter room . Current Home Treatments None. Professional Skilled Services or Special Community Resources None. Spouse Name: patient is . Marital Status: ., 06/19/2023 Nutrition/Health Type of diet: Regular. Caffeine intake amount: coffee ( 1 serving per day). Appetite Good. Eating Difficulties None. Enteral Feedings No. TPN Feedings No. Skin Breakdown Yes., 06/19/2023 Substance Abuse Use: Never., 11/18/2018 Tobacco Nicotine Use: Never (less than 100 in lifetime)., 06/19/2023 Family History Alcohol abuse: Son. Alzheimer's disease: Father. Diabetes mellitus: Father. High blood pressure: Mother, Father and Daughter. Seizure: Son. Stroke: Mother. Immunizations pneumococcal 13-valent conjugate vaccine: 0 unknown unit (11/08/14) pneumococcal 23-valent vaccine(Pneumovax: 0 unknown unit (11/02/13) SARS-CoV-2 (COVID-19) mRNA-1273 vaccine: 0 unknown unit (08/28/20) SARS-CoV-2 (COVID-19) mRNA-1273 vaccine: 0 unknown unit (08/07/20) SARS-CoV-2 mRNA (tozinameran) vaccine: 0.3 unknown unit (03/06/21) tetanus/diphth/pertuss (Tdap) adult/adol: 0.5 mL (05/26/19) tetanus/diphth/pertuss (Tdap) adult/adol: 0 unknown unit (03/02/13) Code Status Code Status - Ordered -- 06/19/23 9:29:00 EST, Full Code, Constant Order Digitally Signed by VIJAYA MARLOW on 06/19/2023 10:51 PM [facility]02-28-2024 Nurse Progress note patient alert to self only . contacted daughter Onelia who assisted with admission questions. daughter unsure of what medications patient takes. will bring a list with her when she comes in to visitpatient tomorrow. Digitally Signed by Aiyana Mitchell RN on 06/19/2023 04:07 PM [facility]02-28-2024 Hospital Discharge instructions Patient Education 06/19/2023 05:21:39 Fall, Uncertain Cause Fall with Uncertain Cause You have had a fall today. But the cause of your fall is not certain. Falls can happen due to slipping, tripping or losing your balance. A fall can also happen from a fainting spell or seizure. While a fall can happen for a simple reason (tripping over something), falls in elderly people are often caused by a combination of things: Age-related decline in function with worsening balance, stability, vision, and muscle strength Chronic illness, such as heart arrhythmias, heart valve disease, vascular disease, COPD, diabetes, strokes, or arthritis Shoes that do not give much support and make you prone to slip or slide Anemia or low blood pressure Effects or side effects of medicines Dehydration or recent use of alcohol Environmental hazards, such as uneven or slippery ground, unfamiliar place, obstacles, uneven surfaces, or slippery ground Situational factors (related to the activity being done, such as rushing to the bathroom) Because the cause of your fall today is not certain, it is possible that a fainting spell or seizure was the cause. This means that it could happen again, without warning. If you fall again, without a cause, then you should return to this facility promptly to have further tests. Otherwise, follow up with your healthcare provider as explained below. It is normal to feel sore and tight in your muscles and back the next day, and not just the musclesyou initially injured. Remember, all the parts of your body are connected, so while initially one area hurts, the next day another may hurt. Also, when you injure yourself, it causes inflammation, which then causes the muscles to tighten up and hurt more. After the initial worsening, it should gradually improve over the next few days. However, more severe pain should be reported. Even without a definite head injury, you can still get a concussion. Concussions and even bleeding can still happen, especially if you have had a recent injury or take blood thinner medicine. It is not unusual to have a mild headache and feel tired and even nauseous or dizzy. Home care Rest today and resume your normal activities as soon as you are feeling back to normal. It is best to remain with someone who can check on you for the next 24 hours to watch for another episode of falling. If you were injured during the fall, follow the advice from your healthcare provider regarding careof your injury. If you become lightheaded or dizzy, lie down right away or sit and lean forward with your head down. As a precaution, don't drive a car or operate dangerous equipment, don't take a bath alone (use a shower instead), and don't swim alone until you see your healthcare provider. A condition causing fainting or seizures must be ruled out before resuming these activities. You may use acetaminophen or ibuprofen to control pain, unless another pain medicine was prescribed. If you have chronic liver or kidney disease or ever had a stomach ulcer or gastrointestinal bleeding, talk with your healthcare provider before using these medicines. Keep your appointments for any further testing that may have been scheduled for you. Follow-up care Follow up with your healthcare provider, or as advised. If X-rays or CT scan were done, you will benotified if there is a change in the reading, especially if it affects treatment. Call 911 Call 911 if any of these happen: Trouble breathing Confused or difficulty arousing Fainting or loss of consciousness Rapid or very slow heart rate Seizure Difficulty with speech or vision, weakness of an arm or leg Difficulty walking or talking, loss of balance, numbness or weakness in one side of your body, facial droop When to seek medical advice Call your healthcare provider right away if any of these happen: Another unexplained fall Dizziness Severe headache Nausea and vomiting Blood in vomit, stools (black or red color) [id number] [employer] [address] [place] [address], [place] [address]. All rights reserved. This information is not intended as a substitute for professional medical care. Always follow yourhealthcare professional's instructions. Follow Up Care 06/19/2023 04:58:11 With:LILIBETH KEANE DO Address: [address] [place] [phone] When:2-4 days [facility] 02-28-2024 Note ORIGINAL EXAMINATION: CT OF THE RIGHT HIP WITHOUT CONTRAST 06/19/2023 6:51 am TECHNIQUE: CT of the right hip was performed without the administration of intravenous contrast. Multiplanar reformatted images are provided for review. Automated exposure control, iterative reconstruction, and/or weight based adjustment of the mA/kV was utilized to reduce the radiation dose to as low as reasonably achievable. COMPARISON: None. HISTORY ORDERING SYSTEM PROVIDED HISTORY: Reason for Exam: pain fall FINDINGS: No acute fracture or dislocation. Moderate degenerative changes of the left hip joint and severe chronic degenerative changes and deformity of the right femoral head and acetabulum. There is subchondral collapse of the right femoral head and an area of subchondral lucency which may represent subchondral cysts. Marked adjacent hyperostosis in the right hip joint. Chronic mild deformity of the right inferior pubic ramus. Degenerative changes of the sacroiliac joints. The sacrum is intact. Mild soft tissue stranding along the left posterior buttock, likely mild soft tissue contusion. Suspect trace fluid in the right iliopsoas bursa. Limited views of the intra-abdominal organs are within normal limits. Moderate to large amount of stool in rectum. Colonic diverticulosis. Atherosclerosis of the aorta. Small fat containing umbilical hernia. IMPRESSION: No acute fracture or dislocation. Soft tissue contusion of the left posterior buttock. Severe deformity of the right hip joint. Suspect trace fluid in the right iliopsoas bursa which can be seen with iliopsoas bursitis. I have personally reviewed the images of this examination and agree with the resident's findings and interpretation. Interpreted by: Samanta Sotelo MD Preliminary Report By: Sia Abdi Electronically signed By Samanta Sotelo MD Dictated Date: 06/19/2023 7:06:13 AM Prelim Date: 06/19/2023 7:14:41 AM Sign Date: 06/19/2023 7:51:45 AM Ordering Provider: [facility]02-28-2024 Note ORIGINAL EXAMINATION: CT OF THE LUMBAR SPINE WITHOUT CONTRAST 06/19/2023 TECHNIQUE: CT of the lumbar spine was performed without the administration of intravenous contrast. Multiplanar reformatted images are provided for review. Adjustment of mA and/or kV according to patient size was utilized. Automated exposure control, iterative reconstruction, and/or weight based adjustment of the mA/kV was utilized to reduce the radiation dose to as low as reasonably achievable. COMPARISON: None HISTORY: ORDERING SYSTEM PROVIDED HISTORY: Reason for Exam: fall FINDINGS: There are 5 lumbar type vertebral bodies. Grade 1 anterolisthesis of L4 on L5. The lumbar spine alignment is otherwise within normal limits. The vertebral body heights are preserved. Moderate to severe intervertebral disc height loss throughout the lumbar spine. Severe degenerative changes with marginal osteophytes, facet joint arthropathy as well as posterior osteophytes causing severe narrowing of the spinal canal, most pronounced at L3-L4 and L4-L5. There is also moderate spinal canal stenosis at L1-L2 L2-L3 and L5-S1. Multilevel moderate to severe neural foraminal narrowing. Limited views of the abdomen are noncontributory. IMPRESSION: No acute fracture or evidence of traumatic listhesis. Severe spinal canal stenosis at multiple levels as described above. I have personally reviewed the images of this examination and agree with the resident's findings and interpretation. Interpreted by: Samanta Sotelo MD Preliminary Report By: Sia Abdi Electronically signed By Samanta Sotelo MD Dictated Date: 06/19/2023 7:14:48 AM Prelim Date: 06/19/2023 7:20:33 AM Sign Date: 06/19/2023 7:50:12 AM Ordering Provider: [facility]02-28-2024 Note ORIGINAL EXAMINATION: 2 XRAY VIEWS OF THE RIGHT HIP 1 VIEWS OF THE PELVIS. COMPARISON: X-ray hip 10/03/2013. HISTORY: ORDERING SYSTEM PROVIDED HISTORY: Reason for Exam: fall FINDINGS: No acute fracture or dislocation. There is a severe chronic right hip joint deformity with subchondral collapse of the femoral head and severe subchondral sclerosis of the femoral head and acetabulum. Severe degenerative changes of the right hip and moderate degenerative changes of the left hip. The pelvic brim is intact. Visualized portions of the sacrum and sacroiliac joints are within normal limits. Moderate amount of stool overlies the rectum. IMPRESSION: No acute fracture or dislocation. Severe chronic deformity of the right hip joint. Preliminary Report was Dictated by a Resident Interpreted by: Samanta Sotelo MD Preliminary Report By: Sia Abdi Electronically signed By Samanta Sotelo MD Dictated Date: 06/19/2023 7:01:14 AM Prelim Date: 06/19/2023 7:06:04 AM Sign Date: 06/19/2023 7:36:39 AM Ordering Provider: [facility]02-28-2024 Note ORIGINAL EXAMINATION: CT OF THE CERVICAL SPINE WITHOUT CONTRAST 06/19/2023 6:46 am TECHNIQUE: CT of the cervical spine was performed without the administration of intravenous contrast. Multiplanar reformatted images are provided for review. Automated exposure control, iterative reconstruction, and/or weight based adjustment of the mA/kV was utilized to reduce the radiation dose to as low as reasonably achievable. COMPARISON: None. HISTORY: ORDERING SYSTEM PROVIDED HISTORY: Reason for Exam: fall FINDINGS: BONES/ALIGNMENT: There is no acute fracture or traumatic malalignment. DEGENERATIVE CHANGES: Moderate multilevel degenerative changes. SOFT TISSUES: There is no prevertebral soft tissue swelling. Significant biapical scarring and areas of bronchiectases. IMPRESSION: No acute fracture of the cervical spine. I have personally reviewed the images of this examination and agree with the resident's findings and interpretation. Interpreted by: Samanta Sotelo MD Preliminary Report By: Sia Abdi Electronically signed By Samanta Sotelo MD Dictated Date: 06/19/2023 6:52:42 AM Prelim Date: 06/19/2023 6:56:50 AM Sign Date: 06/19/2023 7:27:00 AM Ordering Provider: [facility]02-28-2024 Note ORIGINAL EXAMINATION: ONE XRAY VIEW OF THE CHEST 06/19/2023 6:45 am COMPARISON: None. HISTORY: ORDERING SYSTEM PROVIDED HISTORY: Reason for Exam: fall FINDINGS: The cardiomediastinal silhouette is within normal limits. Atherosclerosis of the aorta. Lucencies along the right upper lung most consistent with skin folds. Biapical scarring. No consolidation, pleural effusion, vascular congestion or pneumothorax. Degenerative changes of the spine and bilateral shoulders. IMPRESSION: No acute radiographic process. Preliminary Report was Dictated by a Resident Interpreted by: Samanta Sotelo MD Preliminary Report By: Sia Abdi Electronically signed By Samanta Sotelo MD Dictated Date: 06/19/2023 6:56:57 AM Prelim Date: 06/19/2023 6:58:48 AM Sign Date: 06/19/2023 7:27:49 AM Ordering Provider: [facility]02-28-2024 Note ORIGINAL EXAMINATION: CT OF THE HEAD WITHOUT CONTRAST 06/19/2023 6:43 am TECHNIQUE: CT of the head was performed without the administration of intravenous contrast. Automated exposure control, iterative reconstruction, and/or weight based adjustment of the mA/kV was utilized to reduce the radiation dose to as low as reasonably achievable. COMPARISON: None. HISTORY: ORDERING SYSTEM PROVIDED HISTORY: Reason for Exam: fall FINDINGS: BRAIN/VENTRICLES: There is no acute intracranial hemorrhage, mass effect or midline shift. No abnormal extra-axial fluid collection. The barbosa-white differentiation is maintained without evidence of an acute infarct. There is no evidence of hydrocephalus. Mild generalized parenchymal volume loss. Patchy hypodensities in the supratentorial white matter are nonspecific but most compatible with mild chronic microvascular angiopathy. Age indeterminate lacunar infarct of the left thalamus. ORBITS: The visualized portion of the orbits demonstrate no acute abnormality. SINUSES: The visualized paranasal sinuses and mastoid air cells demonstrate no acute abnormality. SOFT TISSUES/SKULL: No acute abnormality of the visualized skull. Mild soft tissue swelling of the left pre maxillary region. Hyperostosis frontalis interna. IMPRESSION: No acute intracranial hemorrhage. Soft tissue swelling of the left pre maxillary region. Age-indeterminate left thalamic lacunar infarct. Preliminary Report was Dictated by a Resident Interpreted by: Samanta Sotelo MD Preliminary Report By: Sia Abdi Electronically signed By Samanta Sotelo MD Dictated Date: 06/19/2023 6:47:53 AM Prelim Date: 06/19/2023 6:52:35 AM Sign Date: 06/19/2023 7:03:27 AM [facility] NoteAtrial fibrillation Borderline right axis deviation Consider left ventricular hypertrophy Artifact in lead(s) I,II,III,aVR,aVL,aVF,V1,V2,V6 Electronic Signature: JESSICA ARECHIGA DO 06/19/2023 06:26:10[facility] Evaluation + Plan note Future Appointments Appointment Date:06/30/2021 09:00:00 AM Scheduled Provider:LILIBETH KEANE DO Location:[facility] Appointment Type:[facility] Evaluation + Plan note Future Appointments Appointment Date:06/29/2022 10:00:00 AM Scheduled Provider:ILLIBETH KEANE DO Location:[facility] Appointment Type:[facility] Hospital course Narrative No data available for this section [facility] Hospital Discharge instructions No data available for this section [facility] Progress note No data available for this section [facility] Summary Purpose Family History No Family History Records Found Advance Directives No Advanced Directives Records Found Additional Source Comments Care Team (unrecognized sect ion and content) Care Team Personnel Name: LILIBETH KEANE DO Position: P4 Physician - Primary Care Med Service: Active Provider Member Role: Primary Care Physician Address: Address: [address] [place] [id number] Care Team Related Persons Name: ONELIA LUGO Name: KEENAN OLIVERA Address: [address] [place], [place] [id number] Care Team Personnel Name: LILIBETH KEANE DO Position: P4 Physician - Primary Care Member Role: Primary Care Physician Address: Address: [address] [place] [address] [place] [address]- Care Team Related Persons Name: LUGOINDU CROCKERN Name: KEENAN OLIVERA Address: [place] [address] [place], [place] [id number] Patient Care team informatio n (unrecognized section and content) Care Team Personnel Name: LILIBETH KEANE DO Position: P4 Physician - Primary Care Member Role: Primary Care Physician Address: Address: [address] [place] [id number] Care Team Related Persons Name: ONELIA LUGO INFORMATION SOURCE (unrecogn ized section and content) FOR RECORDS PERTAINING TO PATIENTS WHO ARE OR HAVE BEEN ENROLLED IN A CHEMICAL DEPENDENCY/SUBSTANCEABUSE PROGRAM, SOME INFORMATION MAY BE OMITTED. This clinical summary was aggregated from multiple sources. Caution should be exercised in using it in the provision of clinical care. This summary normalizes information from multiple sources, and as a consequence, information in this document may materially change the coding, format and clinical context of patient data. In addition, data may be omitted in some cases. CLINICAL DECISIONS SHOULD BE BASED ON THE PRIMARY CLINICAL RECORDS. [employer] provides no warranty or guarantee of the accuracy or completeness of information in this document.
--- NOTE | 2023-06-26 07:40 | RAD_ITS ---
INDICATION: pain, fall EXAMINATION/TECHNIQUE: X-RAY - LEFT XR Femur Min 2 Views 4 VIEWS COMPARISON: No relevant prior comparison study available FINDINGS: SOFT TISSUES: No soft tissue swelling or gas. No radiopaque foreign body. There are vascular calcifications. BONES/JOINTS: No acute fracture or subluxation.. Normal alignment. There are degenerative changes of the hip and the knee. No sclerotic or destructive changes observed. RAD/Femur Min 2 Views IMPRESSION: Degenerative changes. Atherosclerosis. Electronically Signed: Erica Rao MD at 8:09 EST ,
[2023-06-26 07:49] VITALS: BP 150/60; PULSE 66; RESP 18; O2SAT 96
[2023-06-26] MEDS: Morphine 4 MG/ML Syringe IM (08:38)
[2023-06-26 08:40] VITALS: BP 150/59; PULSE 72; RESP 18; TEMP 36.6; O2SAT 96
--- NOTE | 2023-06-26 08:40 | NURSING ---
08 called crow, within the hour
== END 2023-06-26 08:50 | disposition home or self-care (01) ==
PROVIDERS: Emergency Provider Emergency Medicine; PCP Family Medicine; Visit Provider Emergency Medicine
DX: S32.511A Fracture of superior rim of right pubis, initial encounter for closed fracture (principal); R41.0 Disorientation, unspecified; W06.XXXA Fall from bed, initial encounter; Y92.129 Unspecified place in nursing home as the place of occurrence of the external cause; I10 Essential (primary) hypertension; E78.5 Hyperlipidemia, unspecified; Z79.899 Other long term (current) drug therapy; Z90.49 Acquired absence of other specified parts of digestive tract; Z90.710 Acquired absence of both cervix and uterus
CPT/HCPCS: 73521; 73552; 96372; 96374; 99282

== ENCOUNTER → 2023-07-05 08:32 | Outpatient (REF) | payer MEDICARE, SELFPAY ==
[2023-07-05 08:34] LABS: Red Blood Cells-Urine 0 SEEN /hpf (0-5)
[2023-07-05 08:46] LABS: Color, Urine Yellow (Yellow); Glucose, Dipstick Normal (Normal); Ketone-Dipstick 5 mg/dl (Negative); Leukocyte Esterase-Dipstick 100 /ul (Negative); Nitrite-Dipstick Positive (Negative); Occult Blood-Urine 10 /ul (Negative); Protein-Dipstick 15 mg/dl (Negative); Urine Bilirubin Dipstick Negative (Negative); Urine Clarity Sl. Cloudy (Clear); Urine Urobilinogen 1 mg/dl (Normal)
[2023-07-05 08:54] LABS: Bacteria 4+ /hpf (None Seen); Squamous Epithelial Cells - UA 0-5 SEEN /hpf (5-10); White Blood Cells 5-10 SEEN /hpf (0-5)
[2023-07-05 08:55] LABS: Calcium Oxalate Crystals Ur 1+ /hpf (<or=2+); Mucous, Urine 1+ /hpf (<or=2+)
== END ==
LOC: OLS.SW 08:32
PROVIDERS: PCP Family Medicine; Visit Provider Family Medicine
DX: R39.89 Other symptoms and signs involving the genitourinary system (principal)
CPT/HCPCS: 81001; 87077; 87086; 87088; 87186

== ENCOUNTER 2023-07-13 08:13 | Emergency (ER) | payer MEDICARE, SELFPAY ==
[2023-07-13 08:15] VITALS: BP 100/50; PULSE 59; RESP 16; O2SAT 89
[2023-07-13 08:17] VITALS: BP 124/84; PULSE 62; RESP 16; TEMP 36.6; O2SAT 93; BMI 24.1
[2023-07-13] MEDS: 0.9% Normal Saline (500mL Bag) 500 ML 1000 ML IV (08:20)
--- NOTE | 2023-07-13 08:41 | CT_ITS ---
INDICATION: trauma EXAMINATION: CT CERVICAL SPINE - CT Spine Cervical W/O Contrast Injection TECHNIQUE: Helically acquired images were obtained of the cervical spine. 2D reformatted images were reviewed. A radiation dose optimization technique was used for this scan. IV Contrast dosage and agent: None. RADIATION DOSAGE (If Supplied By Facility): CTDIvol = ( 12.50 ) mGy, DLP = ( 252.08 ) mGycm COMPARISON: No relevant prior comparison study available FINDINGS: VERTEBRAE: No fracture or traumatic subluxation. No discrete lytic or blastic abnormality. Straightening of the cervical spine which could be due to muscle spasm. Normal craniocervical junction and cervicothoracic junction. DISCS and SPINAL CANAL: Mild degenerative changes of the atlantoaxial joint. Degenerative changes of the apophyseal joints at multiple levels. Posterior right lateral degenerative spur at the level of C3-C4 with narrowing of the right neural foramina. Small posterior lateral degenerative spurs at multiple levels. Endplate spondylosis. Minimal anterolisthesis of C4 over C5. Otherwise no critical stenosis. NECK SOFT TISSUES: No prevertebral soft tissue swelling. There is no cervical adenopathy. LUNG APICES: Bilateral apical pleural fibrotic changes. No evidence of pneumothorax. CT/Spine Cervical without Contras IMPRESSION: 1. No evidence of acute cervical spinal fracture or spondylolisthesis. 2. Multilevel degenerative changes.. Electronically Signed: Aristeo Alford MD at 10:53 EDT ,
--- NOTE | 2023-07-13 08:41 | EKG12_ITS ---
Test Reason : FALL Blood Pressure : / mmHG Vent. Rate : 066 BPM Atrial Rate : 066 BPM P-R Int : 250 ms QRS Dur : 094 ms QT Int : 432 ms P-R-T Axes : 082 071 064 degrees QTc Int : 452 ms Sinus rhythm with 1st degree A-V block Otherwise normal ECG Confirmed by Zack Lazo ([id number]), features editor MIKE EMANUEL ([id number]) on 07/16/2023 9:00:20 AM Referred By: Confirmed By:Zack Lazo
--- NOTE | 2023-07-13 08:41 | CT_ITS ---
INDICATION: trauma EXAMINATION: CT BRAIN - CT Head or Brain W/O Contrast Injection TECHNIQUE: Multiple axial images were obtained of the head without intravenous contrast. A radiation dose optimization technique was used for this scan. IV Contrast dosage and agent: None. RADIATION DOSAGE (If Supplied By Facility): CTDIvol = ( 44.99 ) mGy, DLP = ( 745.49 ) mGycm COMPARISON: No relevant prior comparison study available FINDINGS: BRAIN PARENCHYMA: No intra- or extra-axial hemorrhage. No evidence of acute infarct. No intracranial mass or mass effect. There is preservation of the barbosa/white matter interface. Mild chronic periventricular deep white matter changes likely due to microvascular disease. Posterior fossa structures are unremarkable. Atherosclerotic calcifications of the cavernous internal carotid arteries. CSF SPACES: Appropriate for age. No hydrocephalus. Basal cisterns are patent. CALVARIUM, SKULL BASE, PARANASAL SINUSES AND MASTOID AIR CELLS: Clear. No discrete lytic or blastic abnormalities. ORBITS: Both globes, extraocular muscles, optic nerves and retrobulbar fat appear unremarkable. CT/Brain/Head without Contrast IMPRESSION: No acute intracranial process. Electronically Signed: Aristeo Alford MD at 10:48 EDT ,
--- NOTE | 2023-07-13 08:43 | CT_ITS ---
STUDY: CT CHEST, ABDOMEN T PELVIS WITH CONTRAST REASON FOR EXAM: Female, 77 years old. Trauma RADIATION DOSAGE (If Supplied By Facility): CTDIvol = ( 16.71 ) mGy, DLP = ( 1593.36 ) mGycm TECHNIQUE: Transaxial imaging was performed following intravenous administration of IV 100mL Isovue-370. Individualized dose optimization techniques were used for this CT. COMPARISON: No relevant prior comparison study available FINDINGS: CHEST Bilateral apical pleural fibrotic changes. Small right pleural effusion and compressive atelectatic changes in the right lower lobe. Normal heart and pericardium. There are mild calcifications of the coronary arteries. Normal mediastinum. Normal hilar regions. No definite central pulmonary embolism. Atherosclerotic calcifications of the thoracic aorta without evidence of aneurysm. Fractures of the anterior right second, third and fourth ribs of undetermined age and could be acute. Healing fractures of left ribs. ABDOMEN Hepatomegaly. Significant artifacts from patient''s arms. There is non-visualization of the gallbladder, which may be secondary to either contraction or a prior cholecystectomy. Dilated common bile duct measuring up to 13 mm without evidence of retained stones. Normal spleen. Normal pancreas. Normal bilateral adrenal glands. Small left parapelvic cysts. No evidence of hydronephrosis. Normal visualized stomach. Caliber small bowel loops. Markedly limited examination due to significant artifacts. Fecal retention concerning for constipation. No evidence of acute diverticulitis. There is non-visualization of the appendix. There is diffuse atherosclerotic calcification of the abdominal aorta, without a demonstrated aneurysm. Normal inferior vena cava. Normal retroperitoneum. Normal abdominal wall. Multilevel degenerative changes of the spine. Severe arthritic changes of the right hip with deformity. PELVIS Normal urinary bladder. There is no pelvic fluid. There is no pelvic lymphadenopathy or mass lesion. There is absence of the uterus consistent with a prior hysterectomy. CT/CT Chest, Abd, Pel w/Contrast IMPRESSION: 1. Atelectatic changes in the right lower lobe and small right pleural effusion. 2. Fractures of the anterior right second, third and fourth ribs undetermined age and could be acute. 3. No evidence of solid organ injury or pneumothorax. 4. Hepatomegaly. 5. Dilated common bile duct which may not be significant for a post mastectomy patient. 6. Fecal retention concerning for constipation. Electronically Signed: Aristeo Alford MD at 11:12 EDT ,
--- NOTE | 2023-07-13 08:44 | ED.VIS.FALL ---
HPI HPI - Fall History of Present Illness Chief Complaint: Fall Narrative Narrative: 77-year-old female presenting from half-way after unwitnessed fall. Patient is confused and she is a poor informant. PFSH PFSH Medical History Allergic rhinitis Arthritis Essential hypertension Hyperglycemia Hyperlipidemia Osteoporosis Home Medications calcium carbonate 250 mg-vitamin D3 3.125 mcg (125 unit) tablet 1 tab PO TID 10/13/21 [History Last Taken Unknown] denosumab 60 mg/mL subcutaneous syringe (Prolia) 60 mg subcut [id number] 10/13/21 [History Last Taken 06/21/23] lovastatin 20 mg tablet 20 mg PO DAILY 10/13/21 [History Last Taken Unknown] multivitamin 1 tab PO DAILY 10/13/21 [History Last Taken Unknown] doxepin 3 mg tablet 3 mg PO QHS sleep 06/26/23 [History Last Taken Unknown] furosemide 20 mg tablet 20 mg PO DAILY 06/26/23 [History Last Taken Unknown] hydrocodone-acetaminophen 5-325mg 5mg-325mg 1 tab PO Q4H PRN PRN Pain 3 days #18 TABLETS 06/26/23 [Rx Last Taken Unknown] potassium chloride 20 mEq tablet,extended release(part/cryst) 20 meq PO DAILY 06/26/23 [History Last Taken Unknown] Allergy/AdvReac Type Severity Reaction Status Date / Time guaifenesin [From Entex LA] Allergy Unknown unknown Verified 06/26/23 06:06 phenylephrine [From Entex LA] Allergy Unknown unknown Verified 06/26/23 06:06 phenylpropanolamine Allergy Unknown unknown Verified 06/26/23 06:06 [From Entex LA] Sulfa (Sulfonamide Allergy Unknown unknown Verified 06/26/23 06:06 Antibiotics) Family History Father Alzheimer's disease Diabetes Hypertension Mother CVA (cerebral vascular accident) Hypertension Surgical History H/O hemorrhoidectomy History of cholecystectomy History of hysterectomy Social History Smoking Status: Never smoker alcohol intake: never substance use type: does not use caffeine: Yes Type: coffee Number of servings: 3 ROS ROS ED Review of Systems ROS Unobtainable: due to mental condition and due to mental status EXAM Physical Exam Const Vital Signs: 07/13/23 08:17 07/13/23 08:27 07/13/23 08:15 Temperature 98 F Temperature Source Oral Pulse Rate 62 59 L Respiratory Rate 16 16 Respiratory Effort Normal Respiratory Depth Normal Respiratory Pattern Normal Blood Pressure 124/84 H 100/50 L Blood Pressure Mean 97 66 Pulse Ox 93 89 Oxygen Delivery Method Room Air Room Air Oxygen Flow Rate (L/min) 07/13/23 10:15 07/13/23 12:00 07/13/23 12:07 Temperature 98.2 F 98.2 F Temperature Source Temporal Pulse Rate 78 81 80 Respiratory Rate 16 20 H 20 H Respiratory Effort Respiratory Depth Respiratory Pattern Blood Pressure 125/65 H 149/110 H 149/110 H Blood Pressure Mean 85 123 123 Pulse Ox 97 92 92 Oxygen Delivery Method Nasal Cannula Room Air Oxygen Flow Rate (L/min) 2 Positive well nourished General Appearance ED: NAD HEENT Reports normocephalic atraumatic Eyes PERRL and EOMs intact bilaterally Chest Wall inspection of chest normal Resp normal respiratory effort and no retractions Auscultation: Negative for rales, rhonchi or wheezes Cardio regular rate and regular rhythm GI non-tender Neuro CN's II-XII intact bilaterally, moves all extremities, no focal motor deficits and no sensory deficits noted Sensorium / Orientation: alert Motor Exam: general weakness Psych Psych Narrative: Confused MDM MDM MDM Narrative Medical decision making narrative: Patient presenting after unwitnessed fall. She appears confused but has no focal deficits on examination. She is a poor informant., CT brain and cervical spine were obtained to rule out cranial hemorrhage or C-spine fracture these were negative. Given the patient is unable to tell me if she has any pain I did obtain a CT of the chest and pelvis to rule out any other acute abnormalities and the does appear to be some second, third, fourth rib fractures which are age-indeterminate on the right. Otherwise CT chest on pelvis is negative. Vital signs are stable and she is afebrile. COVID, influenza, RSV are negative. Urinalysis is negative. High-sensitivity troponin is 9. EKG on my interpretation shows a sinus rhythm at 56 bpm without sign ischemic change or ectopy. Right hip x-ray 4 views on my interpretation shows no acute fracture. Radiology interprets this and agrees. Discussed findings with Dr. Gallegos who felt patient could be safely transported back to the facility [facility] at [facility]. Impression: 1. Second, third, fourth right-sided rib fractures 2. Fall Lab Data Attestation: I reviewed the patient's lab results. Labs: Laboratory Results - last 24 hr 07/13/23 07/13/23 09:04 10:30 WBC 6.3 RBC 4.26 Hgb 12.1 Hct 38.7 MCV 90.8 MCH 28.4 MCHC 31.3 L RDW Std Deviation 41.8 RDW Coeff of [place] 12.7 Plt Count 284 MPV 10.3 Immature Gran % (Auto) 0.500 Neut % (Auto) 81.0 H Lymph % (Auto) 8.4 L Rapides % (Auto) 8.2 Eos % (Auto) 1.4 Baso % (Auto) 0.5 Absolute Neuts (auto) 5.1 Absolute Lymphs (auto) 0.53 L Nucleated RBC % 0 Sodium 145 Potassium 3.5 Chloride 113 H Carbon Dioxide 28.0 Anion Gap 4 L BUN 16 Creatinine 0.60 Estim Creat Clear Calc 45.10 Est GFR (MDRD) Af Amer 125 Est GFR (MDRD) Non-Af 103 BUN/Creatinine Ratio 26.9 H Glucose 117 H Calcium 8.6 Troponin I High Sens 9 Urine Color Yellow Urine Clarity Clear Urine pH 5.0 Ur Specific [place]ctor 1.025 Urine Protein Negative Urine Glucose (UA) Normal Urine Ketones 5 H Urine Occult Blood Negative Urine Nitrite Negative Urine Bilirubin Negative Urine Urobilinogen 1 H Ur Leukocyte Esterase 25 H Urine RBC 0 SEEN Urine WBC 0-5 SEEN Ur Squamous Epith Cells 0-5 SEEN Urine Bacteria 0 SEEN Urine Mucus 0 SEEN Radiography Diagnostic Testing: Clinical Impression(s) from Imaging Studies Brain CT 07/13/23 08:41 IMPRESSION: No acute intracranial process. Electronically Signed: Aristeo Alford MD at 10:48 EDT , Cervical Spine CT 07/13/23 08:41 IMPRESSION: 1. No evidence of acute cervical spinal fracture or spondylolisthesis. 2. Multilevel degenerative changes.. Electronically Signed: Aristeo Alford MD at 10:53 EDT , Chest/Abdomen/Pelvis CT 07/13/23 08:43 IMPRESSION: 1. Atelectatic changes in the right lower lobe and small right pleural effusion. 2. Fractures of the anterior right second, third and fourth ribs undetermined age and could be acute. 3. No evidence of solid organ injury or pneumothorax. 4. Hepatomegaly. 5. Dilated common bile duct which may not be significant for a post mastectomy patient. 6. Fecal retention concerning for constipation. Electronically Signed: Aristeo Alford MD at 11:12 EDT , Hip/Pelvis X-Ray 07/13/23 10:11 IMPRESSION: 1. No definite evidence of displaced pelvic or hip fracture. 2. If clinically indicated, dedicated CT scan of the pelvis might be of value. Electronically Signed: Aristeo Alford MD at 11:17 EDT , Discharge Plan Triage Chief Complaint: Fall ED Provider: Juan Diego Griffiths Dx/Rx/DC Orders Instructions: ED Rib Fracture Prescriptions: No Action Prolia 60 mg/mL syringe 60 mg subcut [id number] calcium carbonate-vitamin D3 250 mg-3.125 mcg (125 unit) tablet 1 tab PO TID lovastatin 20 mg tablet 20 mg PO DAILY multivitamin Tablet 1 tab PO DAILY doxepin 3 mg tablet 3 mg PO QHS furosemide 20 mg tablet 20 mg PO DAILY Patient Comments: TAKE ONE TABLET BY MOUTH EVERY DAY potassium chloride 20 mEq tablet,ER particles/crystals 20 meq PO DAILY Patient Comments: TAKE ONE TABLET BY MOUTH EVERY DAY WITH FOOD hydrocodone-acetaminophen [hydrocodone-acetaminophen] 5-325 mg tablet 1 tab PO Q4H PRN PRN (Reason: Pain) 3 Days Qty: 18 0RF Primary Care Provider: Delmer Hoffman Referrals: Delmer Hoffman MD [Primary Care Provider] - Disposition Disposition: Home, Self Care
[2023-07-13 09:18] LABS: Absolute Lymphocyte Count 0.53 X10^3/uL (0.83-4.51); Absolute Neutrophil Count 5.1 X10^3/uL (2.0-7.7); Basophil# 0.03 X10^3/uL; Basophil% 0.5 % (0-1); Eosinophil# 0.09 X10^3/uL; Eosinophils% 1.4 % (0-5); Hematocrit 38.7 % (37-47); Hemoglobin 12.1 g/dL (12.0-15.0); Lymphocyte # 0.53 X10^3/ul (0.83-4.51); Lymphocyte % 8.4 % (19-41); Mean Corp Hgb Conc 31.3 g/dL (32-36); Mean Corpuscular Hgb 28.4 pg (27.0-32.0); Mean Corpuscular Volume 90.8 fL (81-99); Mean Platelet Vol. 10.3 fl (6.2-12.0); Monocyte# 0.52 X10^3/uL; Monocyte% 8.2 % (0-10); NRBC Flagged by Analyzer 0 % (0-5); Neutrophil # 5.14 X10^3/uL (2.7-7.7); POSITIVE DIFFERENTIAL YES; Platelet Count 284 K/mm3 (150-450); RBC Distribution Width CV 12.7 % (11.6-14.6); RBC Distribution Width SD 41.8 fl (35.1-43.9); Red Blood Count 4.26 M/mm3 (4.2-5.4); White Blood Count 6.3 K/mm3 (4.4-11.0)
[2023-07-13 09:37] LABS: Anion Gap 4 (5-15); BUN 16 mg/dL (7-18); BUN/Creat Ratio 26.9 RATIO (10-20); Calcium,Total 8.6 mg/dL (8.5-10.1); Chloride 113 mmol/L (98-107); EST Glomerular Filtration Rate 103 mL/min (>60); Est Glom Filt Rate - Afr Amer 125 mL/min (>60); Glucose 117 mg/dL (74-106); Potassium 3.5 mmol/L (3.5-5.1); Sodium Level 145 mmol/L (136-145); Troponin-I HS 9 pg/mL (3.0-54.0)
--- NOTE | 2023-07-13 10:11 | RAD_ITS ---
INDICATION: fall EXAMINATION/TECHNIQUE: X-RAY - XR Hip Unilateral with Pelvis when performed; 2-3 Views COMPARISON: Prior study dated: 06/26/2023 FINDINGS: PELVIC BONES: No displaced fracture, destructive or sclerotic lesions. Note that overlapping bowel shadows may however obscure fine detail. Sacroiliac joints are unremarkable. No widening of the pubic symphysis. HIPS: Severe degenerative arthrosis of the right hip with narrowing of the hip joint, deformity of the femoral head and sclerosis unchanged. Previously noted fracture of the right superior pubic ramus is not well seen at this time. The views are markedly suboptimal. SOFT TISSUES: No soft tissue swelling or gas. RAD/HIP, UNI W/ Pelvis 2-3 Views IMPRESSION: 1. No definite evidence of displaced pelvic or hip fracture. 2. If clinically indicated, dedicated CT scan of the pelvis might be of value. Electronically Signed: Aristeo Alford MD at 11:17 EDT ,
[2023-07-13 10:15] VITALS: BP 125/65; PULSE 78; RESP 16; O2SAT 97
[2023-07-13 10:33] LABS: Bacteria 0 SEEN /hpf (None Seen); Mucous, Urine 0 SEEN /hpf (<or=2+); Red Blood Cells-Urine 0 SEEN /hpf (0-5)
[2023-07-13 10:42] LABS: Color, Urine Yellow (Yellow); Glucose, Dipstick Normal (Normal); Ketone-Dipstick 5 mg/dl (Negative); Leukocyte Esterase-Dipstick 25 /ul (Negative); Nitrite-Dipstick Negative (Negative); Occult Blood-Urine Negative /ul (Negative); Protein-Dipstick Negative (Negative); Specific Gravity, Urine 1.025 (1.002-1.030); Urine Bilirubin Dipstick Negative (Negative); Urine Clarity Clear (Clear); Urine Urobilinogen 1 mg/dl (Normal)
[2023-07-13 11:02] LABS: Squamous Epithelial Cells - UA 0-5 SEEN /hpf (5-10); White Blood Cells 0-5 SEEN /hpf (0-5)
[2023-07-13 12:00] VITALS: BP 149/110; PULSE 81; RESP 20; TEMP 36.8; O2SAT 92
[2023-07-13 12:07] VITALS: BP 149/110; PULSE 80; RESP 20; TEMP 36.8; O2SAT 92
== END 2023-07-13 14:30 | disposition home or self-care (01) ==
PROVIDERS: Emergency Provider Student in an Organized Health Care Education/Training Program; PCP Family Medicine; Visit Provider Student in an Organized Health Care Education/Training Program
DX: S22.41XA Multiple fractures of ribs, right side, initial encounter for closed fracture (principal); R41.0 Disorientation, unspecified; W19.XXXA Unspecified fall, initial encounter; Y92.129 Unspecified place in nursing home as the place of occurrence of the external cause; I10 Essential (primary) hypertension; E78.5 Hyperlipidemia, unspecified; Z79.899 Other long term (current) drug therapy; Z90.49 Acquired absence of other specified parts of digestive tract; Z90.710 Acquired absence of both cervix and uterus
CPT/HCPCS: 70450; 71260; 72125; 73502; 74177; 80048; 81001; 84484; 85025; 87631; 93005; 96360; 96361; 99283; J7040; Q9967; A4216

== ENCOUNTER → 2023-07-17 04:00 | Outpatient (REF) | payer MEDICARE, SELFPAY ==
[2023-07-17 08:42] LABS: ALB/GLOB Ratio 0.8 RATIO (0.9-2.4); AST(SGOT) 40 U/L (15-37); Alanine Aminotransfer ALT/SGPT 38 U/L (13-56); Albumin, Serum 3.3 g/dL (3.2-5.0); Alkaline Phosphatase 186 U/L (45-117); Anion Gap 6 (5-15); BUN 14 mg/dL (7-18); BUN/Creat Ratio 22.4 RATIO (10-20); Chloride 111 mmol/L (98-107); Creatinine, Serum 0.62 mg/dL (0.55-1.02); EST Glomerular Filtration Rate 98 mL/min (>60); Est Glom Filt Rate - Afr Amer 118 mL/min (>60); Globulin 3.9 g/dL (2.2-4.2); Glucose 134 mg/dL (74-106); Potassium 3.7 mmol/L (3.5-5.1); Prealbumin 22.9 mg/dL (20.0-40.0); Protein, Total 7.2 g/dL (6.4-8.2); Sodium Level 141 mmol/L (136-145)
== END ==
LOC: OLS.SW 04:00
PROVIDERS: PCP Family Medicine; Referring Provider Family Medicine; Visit Provider Family Medicine
DX: I10 Essential (primary) hypertension (principal)
CPT/HCPCS: 36415; 80053; 84134